=== PATIENT | male | born 1970 ===

== ENCOUNTER 2016-12-06 08:55 | Emergency (ER) | payer MEDICAID, OTHER ==
[2016-12-06 09:05] VITALS: BP 164/91; PULSE 72; RESP 18; TEMP 97.7; O2SAT 99
--- NOTE | 2016-12-06 09:24 | C.PDOC ---
History Of Present Illness 46M c/o left knee pain after he twisted it while carrying boxes yesterday. he felt a "popping" sensation. this morning he woke up and noted swelling in the knee. has not tried anything for the pain. denies any pmh. Time Seen by Provider: 12/06/16 09:02 Chief Complaint (Nursing): Lower Extremity Problem/Injury Past Medical History Vital Signs: Last Vital Signs Temp 97.7 F 12/06/16 09:01 Pulse 72 12/06/16 09:01 Resp 18 12/06/16 09:01 BP 164/91 H 12/06/16 09:01 Pulse Ox 99 12/06/16 09:24 Family History: States: Other Other Family History: nc - Social History Hx Alcohol Use: Yes Hx Substance Use: No - Immunization History Hx Tetanus Toxoid Vaccination: No Hx Influenza Vaccination: Yes Hx Pneumococcal Vaccination: No Review Of Systems Constitutional: Negative for: Fever, Chills, Weakness, Malaise Cardiovascular: Negative for: Chest Pain Respiratory: Negative for: Shortness of Breath Gastrointestinal: Negative for: Nausea, Vomiting Neurological: Negative for: Weakness, Numbness Physical Exam - Physical Exam Appears: Well, Non-toxic, No Acute Distress Head: Atraumatic Eye(s): bilateral: PERRL Cardiovascular: Rhythm Regular Respiratory: No Decreased Breath Sounds, No Accessory Muscle Use Extremity: Other (left knee: tenderness over the LCL, mild edema, nl ROM, nl strength, no erythema/warmth, no instability) Neurological/Psych: Oriented x3, Normal Motor, Normal Sensation ED Course And Treatment O2 Sat by Pulse Oximetry: 99 Medical Decision Making Medical Decision Making: xr l knee- no acute fracture Disposition - Disposition Disposition: HOME/ ROUTINE Disposition Time: 09:47 Condition: GOOD - Clinical Impression Clinical Impression: Knee injury
--- NOTE | 2016-12-06 10:21 | RAD ---
Left knee two views History: Twisted. Pain. Comparison: None available. Findings: Large suprapatellar joint effusion. Mild medial compartment joint space narrowing at the femorotibial joint space. No evidence for acute displaced fracture or dislocation. Impression: Large suprapatellar joint effusion. Mild medial compartment joint space narrowing at the femorotibial joint space. No evidence for acute displaced fracture or dislocation. If pain persists, consider MRI.
== END 2016-12-06 10:04 | disposition home or self-care (01) ==
LOC: C.ER 08:55
DX: S89.92XA Unspecified injury of left lower leg, initial encounter (principal); X50.1XXA Overexertion from prolonged static or awkward postures, initial encounter